=== PATIENT | male | born 1985 | race Two or more races ===

== ENCOUNTER 2021-02-10 16:56 | Emergency (ER) | payer SELFPAY ==
[~2021-02-10] VITALS: Ht 188 cm; Wt 88.0 kg
[2021-02-10 17:02] VITALS: BP 141/88
== END 2021-02-10 22:02 | disposition left against medical advice (07) ==
LOC: ER 16:56
DX: Z53.21 Procedure and treatment not carried out due to patient leaving prior to being seen by health care provider (principal)

== ENCOUNTER 2021-09-04 08:22 | Emergency (ER) | payer OTHER ==
[~2021-09-04] VITALS: Ht 182.9 cm; Wt 89.0 kg
[2021-09-04 08:33] VITALS: BP 141/79
== END 2021-09-04 09:04 ==
LOC: ER 08:22
DX: S05.42XA Penetrating wound of orbit with or without foreign body, left eye, initial encounter (principal); Y04.0XXA Assault by unarmed brawl or fight, initial encounter; Y93.89 Activity, other specified; Y92.89 Other specified places as the place of occurrence of the external cause
CPT/HCPCS: 12011; 99283

== ENCOUNTER 2022-10-27 07:07 | Emergency (ER) | payer SELFPAY ==
[~2022-10-27] VITALS: Ht 172.7 cm; Wt 100.0 kg
[2022-10-27 07:08] VITALS: BP 124/82
[2022-10-27] MEDS ORDERED: CEPH500C2 MT (07:09)
[2022-10-27] MEDS ORDERED: BO1 TP (07:09)
== END 2022-10-27 08:14 | disposition home or self-care (01) ==
LOC: ER 07:07
DX: S30.861A Insect bite (nonvenomous) of abdominal wall, initial encounter (principal); W57.XXXA Bitten or stung by nonvenomous insect and other nonvenomous arthropods, initial encounter; Y93.89 Activity, other specified; Y92.89 Other specified places as the place of occurrence of the external cause; Y99.8 Other external cause status
CPT/HCPCS: 99283